=== PATIENT | female | born 1990 | race Caucasian/White ===

== ENCOUNTER 2016-04-23 10:23 | Emergency (ER) | payer SELFPAY ==
[2016-04-23 10:46] VITALS: BP 115/71; PULSE 108; TEMP 98.3; BMI 23.1
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
== END 2016-04-23 11:59 | disposition home or self-care (01) ==
LOC: ED 10:23 → EDMC 11:59
DX: K04.7 Periapical abscess without sinus (principal); K02.9 Dental caries, unspecified
CPT/HCPCS: 99282